=== PATIENT | female | born 1975 | race Caucasian/White ===

== ENCOUNTER 2018-01-24 12:19 | Emergency (ER) | payer BC ==
[2018-01-24] MEDS ORDERED: 0.9 % SODIUM CHLORIDE 1,000 ML BAG IV ONE (12:39)
--- NOTE | 2018-01-24 12:45 | Emergency Department Record ---
History of Present Illness - General Chief Complaint: Abdominal Pain Stated Complaint: POSSIBLE BOWEL OBSTRUCTION Time Seen by Provider: 01/24/18 12:37 Source: Patient Mode of Arrival: Ambulatory Limitations: No limitations - History of Present Illness Initial Comments: 42 yo female presents with abdominal pain. She reports she is constipated. She has not had a normal bowel movement in six days. She is having small, firm stools. She is passing some gas. No fevers. She does have nausea and has vomited. No blood in the vomit. She has had some blood in the toilet but she has known hemorrhoids that bleed. She has tried stool softeners and one enema. She has not had any significant stools with the home treatment. She has not had any symptoms similar to her chronic autoimmune pancreatitis. She has a PMHx of asthma, hypertension, chronic hereditary pancreatitis, gastritis, lupus and RA. PSHx of Gallbladder. MD Complaint: Abdominal pain -: Days(s) (6) Location: Diffuse Radiation: None Severity: Moderate Quality: Cramping Consistency: Intermittent Improves With: Nothing Worsens With: Eating Associated Symptoms: Anorexia, Constipation - Related Data Home Medications Medication Instructions Recorded Confirmed Last Taken Alprazolam [Xanax] 0.5 mg PO ASDIR 01/24/18 01/24/18 01/24/18 Amitriptyline HCl [Elavil] 10 mg PO DAILY 01/24/18 01/24/18 01/23/18 Benzonatate [Tessalon Perle] 100 mg PO ASDIR 01/24/18 01/24/18 Unknown Lisinopril [Zestril] 20 mg PO BID 01/24/18 01/24/18 01/24/18 Oxycodone HCl/Acetaminophen 10 mg PO ASDIR 01/24/18 01/24/18 01/24/18 06:00 [Percocet 10mg/325mg] Previous Rx's Medication Instructions Recorded Albuterol Sulfate 0.083% [Neb] 3 ml NEB .EVERY 4-6 HOURS PRN #30 01/15/15 nebulization solution Albuterol Sulfate [Ventolin Hfa] 1 - 2 puff IH DAILY #1 inhaler 01/15/15 Ondansetron HCl [Zofran] 8 mg PO Q4H #120 tablet 01/15/15 Allergies Allergy/AdvReac Type Severity Reaction Status Date / Time dicyclomine HCl [From BENTYL] Allergy Severe Paralysis Verified 01/24/18 12:27 Left side of body shellfish derived Allergy Severe ANAPHYLAXIS Verified 01/24/18 12:27 [SHELLFISH DERIVED] zolpidem tartrate Allergy Intermediate ALTERED Verified 01/24/18 12:27 [From Ambien] MENTAL STATUS trazodone Allergy Mild HYPERSENSIT Verified 01/24/18 12:27 IVITY aripiprazole [From ABILIFY] Allergy Unknown RASH Verified 01/24/18 12:27 metoclopramide HCl Allergy Unknown ALTERED Verified 01/24/18 12:27 [From REGLAN] MENTAL STATUS morphine [MORPHINE] Allergy Unknown HIVES Verified 01/24/18 12:27 sulfamethoxazole Allergy Unknown ABDOMINAL Verified 01/24/18 12:27 [From BACTRIM] PAIN trimethoprim [From BACTRIM] Allergy Unknown ABDOMINAL Verified 01/24/18 12:27 PAIN Review of Systems Constitutional: Denies: Chills, Fever, Malaise, Weakness Eyes: Denies: Eye discharge, Eye pain, Photophobia, Vision change ENT: Denies: Congestion, Throat pain Respiratory: Denies: Cough, Dyspnea, Hemoptysis, Wheezes Cardiovascular: Denies: Chest pain, Palpitations, Syncope Endocrine: Reports: Fatigue Gastrointestinal: Reports: Abdominal pain, Constipation, Hematochezia ( hemorrhoids), Nausea, Vomiting. Denies: Diarrhea, Hematemesis Musculoskeletal: Reports: Myalgia. Denies: Arthralgia, Back pain Skin: Denies: Bruising, Change in color, Rash Neurological: Denies: Headache, Numbness, Weakness Psychiatric: Denies: Anxiety Hematological/Lymphatic: Denies: Blood Clots, Easy bleeding, Easy bruising Past Medical History - SOCIAL HISTORY Smoking Status: Never smoker - [employer]IL [employer] History [employer] history: Reports: no R[employer]IL [employer]ER history - RESPIRATORY Hx Respiratory Disorders: Yes Hx Asthma: Yes Hx Bronchitis: Yes - CARDIOVASCULAR Hx Cardio Disorders: Yes Hx Hypertension: Yes - NEURO Hx Neuro Disorders: No - GI Hx GI Disorders: Yes Hx Abdominal Pain: Yes (heriditary pancreatis) Hx Nausea/Vomiting: Yes Hx Pancreatitis: Yes Hx Wt Loss/Wt Gain: Yes Comment:: Ulcerative Cholitis - Hx Genitourinary Disorders: No - ENDOCRINE Hx Endocrine Disorders: No - MUSCULOSKELETAL Hx Musculoskeletal Disorders: No - PSYCH Hx Psych Problems: Yes Hx Anxiety: Yes (extreme) Hx Depression: Yes - HEMATOLOGY/ONCOLOGY Hx Hematology/Oncology Disorders: No Family Medical History Hx Anxiety: Mother Hx Cancer: Grandparents Hx Depression: Mother Hx Diabetes: Father Physical Exam - General General Appearance: Alert, Oriented x3, Cooperative, No acute distress Limitations: No limitations - Head Head exam: Normal inspection - Eye Eye exam: Normal appearance. negative: Conjunctival injection, Scleral icterus - ENT ENT exam: Normal exam, Mucous membranes moist, Normal orophraynx Ear exam: Normal external inspection Nasal Exam: Normal inspection Mouth exam: Normal external inspection - Neck Neck exam: Normal inspection, Full ROM. negative: Tenderness - Respiratory Respiratory exam: Normal lung sounds bilaterally. negative: Respiratory distress - Cardiovascular Cardiovascular Exam: Regular rate, Normal rhythm, Normal heart sounds - GI/Abdominal GI/Abdominal exam: Soft, Tenderness (mild diffuse, very soft abdomen). negative : Distended, Guarding, Rebound, Rigid - Rectal Rectal exam: Deferred - exam: Deferred - Extremities Extremities exam: Normal inspection - Back Back exam: Reports: Normal inspection, Full ROM. Denies: Muscle spasm, Rash noted, Tenderness - Neurological Neurological exam: Alert, Normal gait, Oriented X3, Reflexes normal - Psychiatric Psychiatric exam: Normal affect, Normal mood - Skin Skin exam: Dry, Intact, Normal color, Warm Course - Reevaluation(s) Reevaluation #1: 01/24/18 13:19 No acute changes on the CBC or UA 01/24/18 13:45 No acute changes on the labs The CMP and lipase are normal The HCG is negative 01/24/18 14:24 Abdominal XR reviewed. Prominent amount of stool throughout the colon. Rectal exam with RN completed. Significant stool noted in rectum, firm franci like. She does have non thrombosed hemorrhoids that are tender. She requests pain medication prior to an enema. I recommend Relistor given as well due to her director long term care narcotic use. 01/24/18 14:30 01/24/18 16:49 On Recheck the patient states she can feel the stool ready to move but the hemorrhoid pain is too much to push. She requests one more pain shot and try to push. 01/24/18 17:16 The patient reports significant relief after a "good size" bowel movement. She is comfortable with DC at this time We discussed home care, hemorrhoid care and reasons to return to the ED. Medical Decision Making - Lab Data Result diagrams: 01/24/18 13:00 01/24/18 13:00 Disposition Disposition: Discharge Clinical Impression: Abdominal pain, Constipation Disposition: Home, Self-Care Condition: (1) Good Instructions: Constipation (ED), Abdominal Pain (ED) Additional Instructions: Immediately return if pain, vomiting, fever or any new concerns Call your doctor to be seen this week for a recheck You will need to stay well hydrated, stool softener and may use magnesium citrate as directed over the counter Forms: Patient Portal Access Time of Disposition: 17:17 Quality - Quality Measures Quality Measures: N/A - Blood Pressure Screening Does Patient Have Any of the Following: No Blood Pressure Classification: Hypertensive Reading Systolic Measurement: 127 Diastolic Measurement: 101 Screening for High Blood Pressure: < Pre-Hypertensive BP, F/U Documented > [ [id number]] Pre-Hypertensive Follow-up Interventions: Referral to alternative/primary care provider.
[2018-01-24] MEDS ORDERED: PROMETHAZINE HCL 12.5 MG in 0.9 % SODIUM CHLORIDE 100ML 100 ML IVPB ONE (13:06)
[2018-01-24 13:08] LABS: URINE APPEARANCE CLEAR; URINE BILIRUBIN NEGATIVE (NEGATIVE); URINE BLOOD NEGATIVE (NEGATIVE); URINE COLOR YELLOW; URINE GLUCOSE (UA) NEGATIVE (NEGATIVE); URINE KETONE NEGATIVE (NEGATIVE); URINE LEUKOCYTE ESTERASE NEGATIVE (NEGATIVE); URINE NITRITE NEGATIVE (NEGATIVE); URINE PROTEIN NEGATIVE (NEGATIVE); URINE UROBILINOGEN 0.2 E.U./dL (0.20 - 1.00)
[2018-01-24 13:09] LABS: BASO % 0.4 % (0-6); EOS % 3.7 % (0-6); GRAN % 69.1 % (47-80); HEMATOCRIT 46.1 % (35.0-47.0); HEMOGLOBIN 16.3 gm/dl (11.6-16.0); LYMPH % 18.9 % (16-45); MEAN CELL VOLUME 88.3 fl (81-97); MEAN CORPUSCULAR HEMOGLOBIN 31.2 pg (27-33); MEAN CORPUSCULAR HGB CONC 35.4 g/dl (32-36); MEAN PLATELET VOLUME 9.2 fl (7.4-10.4); MONO % 7.9 % (0-9); PLATELET COUNT 302 K/uL (130-400); RED BLOOD COUNT 5.22 M/uL (3.80-5.40); RED CELL DISTRIBUTION WIDTH 12.9 % (11.5-14.5); WHITE BLOOD COUNT W/O DIFF 9.8 K/uL (4.2-12.2)
[2018-01-24] MEDS ORDERED: LIDOCAINE UROJECT 10 ML APPL MM ONE (13:18)
[2018-01-24 13:24] LABS: BLOOD UREA NITROGEN 10 mg/dL (6-20); CREATININE 0.7 mg/dL (0.5-0.9); EST GLOMERULAR FILTRATION RATE > 60 mL/min; TOTAL PROTEIN 7.9 g/dL (6.6-8.7)
[2018-01-24 13:26] LABS: GLUCOSE,RANDOM 105 mg/dL (74-109)
[2018-01-24 13:29] LABS: ALB/GLOB RATIO 1.5 (1.1-1.8); ALBUMIN 4.8 g/dL (4.0-5.0); ALKALINE PHOSPHATASE 68 U/L (35-104); ALT/SGPT 15 U/L (<33); AST/SGOT 18 U/L (10.0-35.0); LIPASE 8 U/L (13-60)
[2018-01-24] MEDS ORDERED: HYDROMORPHONE HCL 2 MG/ML VIAL IVP ONE ×2 (14:24→16:44)
[2018-01-24] MEDS ORDERED: METHYLNALTREXONE BROMIDE (RELISTOR) 12MG/0.6ML SYRINGE SQ ONE (14:26)
--- NOTE | 2018-01-26 08:13 | RADIOLOGY REPORT ---
EXAM: ABDOMEN, TWO VIEWS HISTORY: ABDOMINAL PAIN AND CONSTIPATION, ANAL PAIN FROM HEMORRHOIDS. TECHNIQUE: Supine and upright views of the abdomen were obtained. Comparison: Abdomen series 02/01/14. FINDINGS: Battery pack left lower quadrant again seen with the wires extending up into the level of the lower thoracic spine above the superior extent of the upright film. Surgical clips right upper quadrant of the abdomen presumably from cholecystectomy. Moderate stool particularly in the left side of the colon suggesting constipation. Very few, if any, air fluid levels seen aside from the upper GI tract. The right hemidiaphragm is probably not entirely included on the upright view, but as visualized, no free air evident. IMPRESSION: 1. PROMINENT AMOUNT OF STOOL THROUGHOUT MUCH OF THE COLON SUGGESTING CONSTIPATION. 2. POSTOP CHANGES ABOVE. 3. RIGHT HEMIDIAPHRAGM PROBABLY NOT ENTIRELY INCLUDED ON THE UPRIGHT VIEW BUT NO FREE AIR IDENTIFIED. JOB NUMBER: [id number] MTDD
== END 2018-01-24 17:31 | disposition home or self-care (01) ==
LOC: ER 12:19
DX: K59.00 Constipation, unspecified (principal); R10.9 Unspecified abdominal pain; R11.2 Nausea with vomiting, unspecified; I10 Essential (primary) hypertension
CPT/HCPCS: 99284 ×2; 96376; 96372; 96365; 96375; 83690; 85025; 80053; 81003; 81025; 74019; J1170; J2212; J2550; J7030